=== PATIENT | female | born 1950 | race African-American/Black ===

== ENCOUNTER 2017-09-21 10:20 | Outpatient (CLI) | payer MEDICARE, MEDICAID | END 2017-09-21 10:21 | disposition home or self-care (01) | LOC: BICMAMMO 10:20 | PROVIDERS: ATTEND Family Medicine | DX: Z12.31 Encounter for screening mammogram for malignant neoplasm of breast (principal); Z78.0 Asymptomatic menopausal state; R53.82 Chronic fatigue, unspecified; M85.852 Other specified disorders of bone density and structure, left thigh; R92.1 Mammographic calcification found on diagnostic imaging of breast; Z90.710 Acquired absence of both cervix and uterus | CPT/HCPCS: 71046; 77063; 77067; 77080 ==

== ENCOUNTER 2019-05-28 14:15 | Outpatient (CLI) | payer MEDICARE ==
--- NOTE | 2019-05-28 15:24 | BD ---
BONE DENSITOMETRY USING DEXA: HISTORY: Post menopausal screening for osteoporosis. FINDINGS LUMBAR SPINE BMD (g/cm2) T-SCORE Z-SCORE L1 0.898 -0.8 0.9 L2 0.926 -0.9 1.0 L3 0.914 -1.5 0.4 L4 0.956 -1.0 1.1 TOTAL 0.926 -1.1 0.8 BMD (g/cm2) T-SCORE Z-SCORE NECK 0.724 -1.1 0.5 TOTAL 0.940 0.o 1.3 The 10 year fracture risk for a major osteoporotic fracture is 8.5% and for a hip fracture is 0.8%. IMPRESSION: Osteopenia. POS: [facility]
--- NOTE | 2019-05-28 15:55 | MMO ---
Bilateral MAMMO Bilat Screen [facility]. CLINICAL HISTORY: Patient is 69 years old and is seen for screening. The patient has no family history of breast cancer. The patient has no personal history of cancer. VIEWS: The views performed were: bilateral craniocaudal with tomosynthesis and bilateral mediolateral oblique with tomosynthesis. This study has been interpreted with the assistance of computer-aided detection. MAMMOGRAM FINDINGS: There are scattered fibroglandular densities. There are no suspicious masses, suspicious calcifications, or new areas of architectural distortion. IMPRESSION: THERE IS NO MAMMOGRAPHIC EVIDENCE OF MALIGNANCY. A ROUTINE FOLLOW-UP MAMMOGRAM IN 1 YEAR IS RECOMMENDED. THE RESULTS OF THIS EXAM WERE SENT TO THE PATIENT. ACR BI-RADS Category 1 - Negative MAMMOGRAPHY NOTE: 1. A negative mammogram report should not delay a biopsy if a dominant of clinically suspicious mass is present. 2. Approximately 10% to 15% of breast cancers are not detected by mammography. 3. Adenosis and dense breasts may obscure an underlying neoplasm. Reported by: JC ALICEA MD Electonically Signed: [id number]
== END 2019-05-28 14:16 | disposition home or self-care (01) ==
LOC: BICMAMMO 14:15
PROVIDERS: ATTEND Family Medicine
DX: Z12.31 Encounter for screening mammogram for malignant neoplasm of breast (principal); Z13.820 Encounter for screening for osteoporosis; M54.5 Low back pain; M25.559 Pain in unspecified hip; M85.89 Other specified disorders of bone density and structure, multiple sites
CPT/HCPCS: 77063; 77067; 77080

== ENCOUNTER 2021-01-12 13:04 | Outpatient (CLI) | payer MEDICARE | END 2021-01-12 13:05 | disposition home or self-care (01) | LOC: BICMAMMO 13:04 | PROVIDERS: ATTEND Family Medicine | DX: Z12.31 Encounter for screening mammogram for malignant neoplasm of breast (principal) | CPT/HCPCS: 77063; 77067 ==

== ENCOUNTER 2022-01-13 07:41 | Outpatient (CLI) | payer MEDICARE | END 2022-01-13 07:42 | disposition home or self-care (01) | LOC: BICMAMMO 07:41 | PROVIDERS: ATTEND Family Medicine | DX: Z12.31 Encounter for screening mammogram for malignant neoplasm of breast (principal) | CPT/HCPCS: 77063; 77067 ==

== ENCOUNTER 2023-03-27 09:17 | Outpatient (CLI) | payer MEDICARE | END 2023-03-27 09:18 | disposition home or self-care (01) | LOC: BICMAMMO 09:17 | PROVIDERS: ATTEND Family Medicine | DX: Z12.31 Encounter for screening mammogram for malignant neoplasm of breast (principal); M85.80 Other specified disorders of bone density and structure, unspecified site; M85.852 Other specified disorders of bone density and structure, left thigh | CPT/HCPCS: 77063; 77067; 77080 ==

== ENCOUNTER 2024-06-10 13:07 | Emergency (ER) | payer MEDICARE ==
[2024-06-10] MEDS ORDERED: Ketorolac Tromethamine 30 MG (1 mL) VIAL ONE (16:10)
== END 2024-06-10 16:59 | disposition home or self-care (01) ==
LOC: ERS 13:07
DX: S30.0XXA Contusion of lower back and pelvis, initial encounter (principal); I10 Essential (primary) hypertension; W01.198A Fall on same level from slipping, tripping and stumbling with subsequent striking against other object, initial encounter
CPT/HCPCS: 72100; 72220; J1885; 96372; 99283